=== PATIENT | female | born 1965 | race Hispanic/Latino ===

== ENCOUNTER → 2021-08-23 | Outpatient (CLI) | payer BC, OTHER ==
[~2021-08-23] MED LIST: CEFAZOLIN SODIUM 1 GM VIAL IVP ONE
[2021-08-23 12:56] LABS: BASOPHILS % (AUTO) 0.5 % (0.0-5.0); EOSINOPHILS % (AUTO) 1.7 % (0.0-8.0); HEMATOCRIT 42.7 % (36-48); LYMPHOCYTES % (AUTO) 22.8 % (21.0-51.0); MEAN CORPUSCULAR HEMOGLOBIN 31.4 pg (27.0-33.0); MEAN CORPUSCULAR VOLUME 95.1 fL (79-99); NEUTROPHILS % (AUTO) 67.7 % (40.0-77.0); PLATELET COUNT (AUTO) 235 K/uL (130-400); RED BLOOD CELL COUNT(AUTO) 4.49 MIL/uL (4.00-5.50); RED CELL DISTRIBUTION WIDTH 12.8 % (11.0-15.5); WHITE BLOOD COUNT (AUTO) 7.7 K/uL (4.8-10.8)
[2021-08-23 13:17] LABS: CREATININE 0.8 mg/dL (0.5-1.5)
[2021-08-23 13:18] LABS: INR 1.01 (0.85-1.15)
[2021-08-23 13:19] LABS: PARTIAL THROMBOPLASTIN TIME 25.7 SEC (26.3-35.5)
== END | disposition home or self-care (01) ==
LOC: DAH 10:00 → EDSTATUS 08-25 10:00
PROVIDERS: ATTEND Otolaryngology Plastic Surgery within the Head & Neck
DX: Z01.818 Encounter for other preprocedural examination (principal); D17.1 Benign lipomatous neoplasm of skin and subcutaneous tissue of trunk; Z20.822 Contact with and (suspected) exposure to COVID-19; Z79.01 Long term (current) use of anticoagulants; Z79.899 Other long term (current) drug therapy
CPT/HCPCS: 36415; 71045; 80048; 85025; 85610; 85730; 87635; 93005; A6260; C9803

== ENCOUNTER 2022-03-30 06:30 | Day surgery (SDC) | payer BC, OTHER ==
[2022-03-28 10:50] LABS: BASOPHILS % (AUTO) 0.3 % (0.0-5.0); EOSINOPHILS % (AUTO) 7.4 % (0.0-8.0); HEMATOCRIT 44.3 % (36-48); LYMPHOCYTES % (AUTO) 29.8 % (21.0-51.0); MEAN CORPUSCULAR HEMOGLOBIN 30.6 pg (27.0-33.0); MEAN CORPUSCULAR HGB CONC 33.2 g/dL (32.0-36.0); MEAN CORPUSCULAR VOLUME 92.3 fL (79-99); MONOCYTES % (AUTO) 6.4 % (3.0-13.0); NEUTROPHILS % (AUTO) 55.9 % (40.0-77.0); PLATELET COUNT (AUTO) 234 K/uL (130-400); RED CELL DISTRIBUTION WIDTH 12.6 % (11.0-15.5); WHITE BLOOD COUNT (AUTO) 5.9 K/uL (4.8-10.8)
[2022-03-28 10:55] LABS: INR 0.94 (0.85-1.15); PROTHROMBIN TIME 10.3 SEC (9.6-11.6)
[2022-03-28 10:57] LABS: PARTIAL THROMBOPLASTIN TIME 25.2 SEC (26.3-35.5)
[2022-03-28 11:16] LABS: CREATININE 0.8 mg/dL (0.5-1.5); POTASSIUM 4.2 mmol/L (3.5-5.1)
[2022-03-29 12:22] VITALS: BP 114/59
[~2022-03-30] VITALS: Ht 160 cm; Wt 99.2 kg
[2022-03-30] VITALS (16 sets, daily range): BP systolic 93–148; BP diastolic 40–82
[~2022-03-30 06:30] MED LIST changes: +ALBU0.63 IH; -CEFAZOLIN SODIUM 1 GM VIAL IVP ONE; +FEXO1TAB8 PO; +FLUT1DIS IH
[2022-03-30] MEDS ORDERED: LACTATED RINGERS 1000ML 1,000 ML IV ONE (06:34)
[2022-03-30] MEDS ORDERED: CEFAZOLIN SODIUM 1 GM VIAL ONE (06:34)
[2022-03-30] MEDS ORDERED: LIDOCAINE 1%-EPI 1:100,000 20 ML VIAL IJ ONE (07:00)
[2022-03-30] MEDS ORDERED: BACITRACIN 28.4 GM OINT TP ONE (07:00)
[2022-03-30] MEDS ORDERED: SUCCINYLCHOLINE CHLORIDE 20 MG/ML 10 ML VIAL ONE (07:30)
[2022-03-30] MEDS ORDERED: LIDOCAINE HCL 4% LTA SOL 4 ML VIAL ONE (07:30)
[2022-03-30] MEDS ORDERED: FENTANYL CITRATE PF 50 MCG/1 ML 2ML VIAL ONE (07:31)
[2022-03-30] MEDS ORDERED: PROPOFOL 10 MG/ML 20ML VIAL IV ONE (07:31)
[2022-03-30] MEDS ORDERED: MIDAZOLAM HCL 1 MG/ML 2ML VIAL ONE (07:31)
[2022-03-30] MEDS ORDERED: DEXAMETHASONE SOD PHOSPHATE 4 MG/ML 1ML VIAL ONE (08:19)
[2022-03-30] MEDS ORDERED: ONDANSETRON 4MG INJ ONE (09:18)
[2022-03-30] MEDS ORDERED: NEOSTIGMINE 5MG/5ML SYR IV ONE (09:18)
[2022-03-30] MEDS ORDERED: GLYCOPYRROLATE 1 MG/5 ML SYRINGE ONE (09:18)
[2022-03-30] MEDS ORDERED: IPRATROPIUM/ALBUTEROL SULFATE 3 ML SOLUTION IH ONE (10:08)
[2022-03-30] MEDS ORDERED: ACETAMINOPHEN 500 MG TABLET PO ONE (11:00)
[2022-03-31] MEDS ORDERED: CEFAZOLIN SODIUM 1 GM VIAL IVP SCH (06:00)
== END 2022-03-30 11:40 | disposition home or self-care (01) ==
LOC: DAH 06:30
PROVIDERS: ATTEND Otolaryngology Plastic Surgery within the Head & Neck
DX: D17.1 Benign lipomatous neoplasm of skin and subcutaneous tissue of trunk (principal); E66.01 Morbid (severe) obesity due to excess calories; K21.9 Gastro-esophageal reflux disease without esophagitis; J45.909 Unspecified asthma, uncomplicated; Z79.01 Long term (current) use of anticoagulants; Z79.899 Other long term (current) drug therapy; Z98.890 Other specified postprocedural states
CPT/HCPCS: 80048; 85025; 85610; 85730; 87426; 36415; 21933; 94640; A6260; J1100; A4663; A4606; J7120; J3010; J0690; J3490; J2710; J0330; J2250; J2704; J2405; A4215; A4223; A4222; A4221; A4554; A4600